=== PATIENT | female | born 1995 | race Caucasian/White ===

== ENCOUNTER 2019-04-11 22:31 | Inpatient (IN) | payer OTHER ==
[~2019-04-11] VITALS: Ht 175.3 cm; Wt 95.0 kg
[2019-04-11] MEDS ORDERED: ONDANSETRON HCL 4 MG TABLET PO ONE (23:45)
[2019-04-11] MEDS ORDERED: CloNIDine HCL 0.2 MG TABLET PO ONE (23:45)
[2019-04-11] MEDS ORDERED: KETOROLAC TROMETHAMINE 60 MG/2 ML VIAL IM ONE (23:45)
[2019-04-11] MEDS ORDERED: ACETAMINOPHEN 325 MG TABLET PO ONE (23:45)
[2019-04-11 23:46] LABS: BASOPHILS % (AUTO) 0.5 % (0.0-2.0); EOSINOPHILS % (AUTO) 1.4 % (1.0-6.0); HEMATOCRIT 38.2 % (36-46); HEMOGLOBIN 12.2 g/dL (12.0-16.0); LYMPHOCYTES # (AUTO) 2.6 K/uL (1.0-4.8); MEAN CORPUSCULAR HEMOGLOBIN 27.7 pg (26.0-34.0); MEAN CORPUSCULAR HGB CONC 31.9 G/dL (31.0-37.0); MEAN CORPUSCULAR VOLUME 87 fL (80-100); MONOCYTES # (AUTO) 0.5 K/uL (0.1-1.0); MONOCYTES % (AUTO) 6.5 % (2.0-9.0); NEUTROPHILS # (AUTO) 4.6 K/uL (1.8-7.7); NEUTROPHILS % (AUTO) 58.6 % (40.0-70.0); PLATELET COUNT (AUTO) 243 K/uL (150-450); RED BLOOD CELL COUNT(AUTO) 4.39 MIL/uL (4.00-5.20); RED CELL DISTRIBUTION WIDTH 14.1 % (11.5-14.5)
[2019-04-11 23:52] LABS: ANION GAP 6 mmol/L (8-16); CALCIUM, TOTAL 9.1 mg/dL (8.8-10.5); CARBON DIOXIDE 29 mmol/L (22-29); CHLORIDE 106 mmol/L (98-107); GLOMERULAR FILTR. RATE CALC > 60 mL/min (>60); GLUCOSE,RANDOM 100 mg/dL (70-110); POTASSIUM 3.7 mmol/L (3.5-5.1); SODIUM SERUM 141 mmol/L (136-145); UREA NITROGEN, BLOOD 12 mg/dL (7-18)
[2019-04-12] VITALS (7 sets, daily range): BP systolic 115–142; BP diastolic 59–87
[2019-04-12 00:04] LABS: ALANINE AMINOTRANSFERASE 31 U/L (12-78); ALBUMIN 3.4 g/dL (3.4-5.0); ALKALINE PHOSPHATASE 53 U/L (46-116); ASPARTATE AMINOTRANSFERASE 19 U/L (15-37); BILIRUBIN,TOTAL 0.2 mg/dL (0.1-1.0); HCG,QUANTITATIVE < 1 mIU/mL (0-6); TOTAL PROTEIN, SERUM 6.7 g/dL (6.4-8.2)
[2019-04-12] MEDS ORDERED: LORazepam 2 MG/ML VIAL IM PRN (00:15)
[2019-04-12] MEDS ORDERED: BISACODYL 10 MG RECTAL RECTAL SUPPOSITORY PR PRN (00:15)
[2019-04-12] MEDS ORDERED: MAGNESIUM SULFATE 2 GM, MVI, ADULT NO.1 WITH VIT K 10 ML, THIAMINE HCL 100 MG, FOLIC AC... IV ONE ×5 (00:15)
[2019-04-12] MEDS ORDERED: DICYCLOMINE HCL 10 MG CAPSULE PO PRN (00:15)
[2019-04-12] MEDS ORDERED: LOPERAMIDE HCL 2 MG CAPSULE PO PRN (00:15)
[2019-04-12] MEDS ORDERED: METOCLOPRAMIDE HCL 5 MG/ML 2 ML VIAL IVP PRN (00:15)
[2019-04-12] MEDS ORDERED: MAGNESIUM HYDROXIDE SUSPENSION 30 ML UDCUP PO PRN (00:15)
[2019-04-12] MEDS ORDERED: ACETAMINOPHEN 325 MG TABLET PO PRN (00:15)
[2019-04-12 00:44] LABS: AMPHET/METH SCREEN,URINE POSITIVE (NEGATIVE); BARBITURATE SCREEN, URINE NEGATIVE (NEGATIVE); BENZODIAZEPINES SCREEN,URINE NEGATIVE (NEGATIVE); CANNABINOID SCREEN,URINE NEGATIVE (NEGATIVE); COCAINE SCREEN,URINE NEGATIVE (NEGATIVE); METHADONE SCREEN, URINE NEGATIVE (NEGATIVE); OPIATE SCREEN,URINE POSITIVE (NEGATIVE)
[2019-04-12 00:47] LABS: PHENCYCLIDINE SCREEN,URINE NEGATIVE (NEGATIVE)
[2019-04-12 00:48] LABS: APPEARANCE,URINE CLOUDY (CLEAR); GLUCOSE, URINE (UA) NEGATIVE (NEGATIVE); KETONES,URINE TRACE mg/dL (NEGATIVE); LEUKOCYTE ESTERASE ,URINE MODERATE (NEGATIVE); NITRATE,URINE NEGATIVE (NEGATIVE); OCCULT BLOOD,URINE NEGATIVE (NEGATIVE); PH,URINE 5.5 (5.0-8.0); PROTEIN,URINE TRACE (NEGATIVE)
[2019-04-12 00:51] LABS: BILIRUBIN,URINE PRELIM. POSITIVE (NEGATIVE)
[2019-04-12 01:01] LABS: BACTERIA,URINE Many /HPF (None Seen); CALCIUM OXALATE CRYSTALS,UR Rare /LPF (None Seen); SQUAMOUS EPITHELIAL CELL,UR Few /LPF (None Seen); WBC,URINE 51-100 /HPF (0-5)
[2019-04-12] MEDS ORDERED: LIDOCAINE/PF 1% 2 ML VIAL IM ONE (01:15)
[2019-04-12] MEDS ORDERED: CefTRIAXone SODIUM 1 GM/VIAL IM ONE (01:15)
[2019-04-12] MEDS: PANTOPRAZOLE SODIUM 40 MG DR TABLET PO SCH (09:29)
[2019-04-12] MEDS: DOCUSATE SODIUM 100 MG CAPSULE PO SCH (09:30)
[2019-04-12] MEDS: NICOTINE 14 MG/24 HOUR PATCH TD SCH (11:56)
[2019-04-12] MEDS: MORPHINE SULFATE 2 MG/ML SYRINGE IVP PRN (14:18)
[2019-04-12] MEDS: HYDROCODONE/ACETAMINOPHEN 5-325 MG TABLET PO PRN (16:57)
[2019-04-13] MEDS: DOCUSATE SODIUM 100 MG CAPSULE PO SCH ×3 (00:17→19:36)
[2019-04-13] MEDS: ZOLPIDEM TARTRATE 5 MG TABLET PO PRN (00:17)
[2019-04-13] MEDS ORDERED: SODIUM CHLORIDE 0.9% 500 ML IV ONE (01:35)
[2019-04-13] MEDS: CefTRIAXone 1 GM/DEXTROSE 50 ML IV SCH ×2 (01:37→23:52)
[2019-04-13 05:14] VITALS: BP 118/68
[2019-04-13] MEDS: HYDROCODONE/ACETAMINOPHEN 5-325 MG TABLET PO PRN (05:45)
[2019-04-13 08:31] VITALS: BP 129/74
[2019-04-13] MEDS: PANTOPRAZOLE SODIUM 40 MG DR TABLET PO SCH (08:38)
[2019-04-13] MEDS: MORPHINE SULFATE 2 MG/ML SYRINGE IVP PRN ×2 (11:49→15:58)
[2019-04-13] MEDS: ARIPiprazole 15 MG TABLET PO SCH (11:49)
[2019-04-13] MEDS: LORazepam 2 MG/ML VIAL IVP PRN ×2 (11:49→18:23)
[2019-04-13] MEDS: NICOTINE 14 MG/24 HOUR PATCH TD SCH (11:49)
[2019-04-13 13:35] VITALS: BP 137/73
[2019-04-13 16:06] VITALS: BP 112/62
[2019-04-13 19:55] VITALS: BP 136/78
[2019-04-13] MEDS ORDERED: HydrOXYzine PAMOATE 50 MG CAPSULE PO SCH (21:00)
[2019-04-13 23:54] VITALS: BP 130/67
[2019-04-14] MEDS: ZOLPIDEM TARTRATE 5 MG TABLET PO PRN (00:47)
[2019-04-14 06:19] VITALS: BP 133/72
[2019-04-14 08:17] VITALS: BP 139/85
[2019-04-14] MEDS: DOCUSATE SODIUM 100 MG CAPSULE PO SCH (09:00)
[2019-04-14] MEDS: PANTOPRAZOLE SODIUM 40 MG DR TABLET PO SCH (09:00)
[2019-04-14] MEDS: ARIPiprazole 15 MG TABLET PO SCH (09:00)
[2019-04-14] MEDS: NICOTINE 14 MG/24 HOUR PATCH TD SCH (09:03)
[2019-04-14] MEDS: HYDROCODONE/ACETAMINOPHEN 5-325 MG TABLET PO PRN (09:05)
[2019-04-14] MEDS ORDERED: CEPH500 PO (09:40)
[2019-04-14] MEDS ORDERED: ONDA4 PO (09:41)
[2019-04-14] MEDS ORDERED: ARIP10TA8 PO (09:44)
[2019-04-14] MEDS: LORazepam 2 MG/ML VIAL IVP PRN (12:02)
[2019-04-14 12:03] VITALS: BP 123/74
[2019-04-14] MEDS: MORPHINE SULFATE 2 MG/ML SYRINGE IVP PRN (12:06)
== END 2019-04-14 16:00 | DRG 897 ==
LOC: EMS 22:40 → 5S 04-12 00:30 → 6S 04-12 01:08 → 5S 04-13 16:21 → 6S 04-13 16:24
PROVIDERS: ADMIT Internal Medicine; ATTEND Internal Medicine
DX: F11.23 Opioid dependence with withdrawal (principal); N39.0 Urinary tract infection, site not specified; F15.20 Other stimulant dependence, uncomplicated; F31.30 Bipolar disorder, current episode depressed, mild or moderate severity, unspecified; B96.20 Unspecified Escherichia coli [E. coli] as the cause of diseases classified elsewhere; F25.9 Schizoaffective disorder, unspecified; F17.210 Nicotine dependence, cigarettes, uncomplicated; Z88.8 Allergy status to other drugs, medicaments and biological substances
CPT/HCPCS: 12051; 87086; 96361; 96365; G0378; J0696; J1885; J2060; J2270; J2765; J3411; J3475; J3490; J7030; J7040